=== PATIENT | female | born 1955 | race Caucasian/White ===

== ENCOUNTER 2019-07-16 18:10 | Inpatient (IN) ==
[2019-07-16] MEDS ORDERED: NS 1000 ML 1,000 ML IV ONE (18:13)
[2019-07-16] MEDS ORDERED: NS 1000 ML 2,000 ML ONE (18:25)
[2019-07-16] MEDS ORDERED: ZOFRAN INJ 4 MG VIAL ONE (18:47)
[2019-07-16] MEDS ORDERED: DILAUDID INJ ONE (18:47)
[2019-07-16] MEDS: DILAUDID INJ IVP PRN ×2 (18:51→23:30)
[2019-07-16] MEDS: ZOFRAN INJ 4 MG VIAL IVP PRN (18:52)
[2019-07-16 19:39] LABS: BASOPHILS # (AUTO) 0.1 X10^3/uL (0.0-0.1); BASOPHILS % (AUTO) 0.7 % (0.2-1.0); EOSINOPHILS % (AUTO) 0.2 % (0.9-2.9); HEMATOCRIT 39.4 % (36.0-47.0); HEMOGLOBIN 13.6 g/dL (12.0-16.0); LYMPHOCYTES # (AUTO) 1.3 X10^3/uL (1.3-2.9); LYMPHOCYTES % (AUTO) 10.5 % (21.0-51.0); MEAN CORPUSCULAR HEMOGLOBIN 30.7 pg (27.0-34.0); MEAN CORPUSCULAR HGB CONC 34.4 g/dL (33.0-35.0); MEAN CORPUSCULAR VOLUME 89.1 fL (80.0-100.0); MEAN PLATELET VOLUME 8.2 fL (7.4-11.0); MONOCYTES # (AUTO) 0.5 x10^3/uL (0.3-0.8); NEUTROPHILS # (AUTO) 10.4 x10^3/uL (2.2-4.8); NEUTROPHILS % (AUTO) 84.6 % (42.0-75.0); PLATELET COUNT 255 X10^3/uL (150.0-450.0); RED BLOOD COUNT 4.42 X10^6/uL (3.5-5.4); RED CELL DISTRIBUTION WIDTH 12.4 % (11.6-16.5); WHITE BLOOD COUNT 12.3 X10^3/uL (3.6-10.0)
[2019-07-16 19:45] VITALS: BMI 24.5
[2019-07-16 19:52] LABS: ALANINE AMINOTRANSFERASE 15 Units/L (12-78); ALBUMIN 3.6 g/dL (3.4-5.0); ALKALINE PHOSPHATASE 65 Units/L (46-116); ASPARTATE AMINO TRANSFERASE 15 Units/L (15-37); BLOOD UREA NITROGEN 9 mg/dL (7-18); CALCIUM 8.6 mg/dL (8.5-10.1); CARBON DIOXIDE 27.4 mmol/L (21-32); CHLORIDE 103 mmol/L (98-107); CREATININE 0.86 mg/dL (0.55-1.02); SODIUM 138 mmol/L (136-145); TOTAL PROTEIN 6.6 g/dL (6.4-8.2); eGFR NON BLACK RACES > 60 (>60)
[2019-07-16] MEDS: NS 1000 ML 1,000 ML IV SCH (21:00)
[2019-07-16 21:21] LABS: FREE T4 (FREE THYROXINE) 1.29 ng/dL (0.76-1.46); TSH (3RD GENERATION) 0.609 uIU/mL (0.358-3.74)
[2019-07-17] MEDS: DILAUDID INJ IVP PRN ×2 (05:00→09:26)
--- NOTE | 2019-07-17 06:24 | RAD ---
HISTORYLower abdominal pain, vomitingSTUDYACUTE ABDOMEN JELDCCAVKIUMPWKU72/12/2018FINDINGSThe heart is within normal limits in size. The lungs are mildly hypoinflated but clear. The abdominal gas pattern is nonspecific and nonobstructive. No pneumoperitoneum is identified. No abnormal masses or abnormal calcifications are identified. The regional skeleton is intact.IMPRESSIONUnremarkable acute abdominal seriesElectronically signed by: SRUTHI BLANKENSHIP (Jul 17, 2019 06:23:09)
[2019-07-17] MEDS: LOVENOX INJ 40 MG SYR SC SCH (09:25)
[2019-07-17] MEDS: ZOFRAN INJ 4 MG VIAL IVP PRN (09:25)
--- NOTE | 2019-07-17 09:35 | US ---
HISTORYRUQ PAINSTUDYGALL BLADDERCOMPARISONTECHNIQUEMultiple javier scale and color flow Doppler images of the right upper quadrant were obtained.FINDINGSThe liver is normal in echotexture and size. The liver measures 12 cm sagittal. The liver is echogenic consistent with fatty liver but no focal lesions or dilated ducts are observed. There is normal flow in the main portal vein. There is normal flow in the hepatic veins and the hepatic artery. No focal intraparenchymal mass or intrahepatic biliary ductal dilatation can be observed. The gallbladder fails to demonstrate evidence for cholelithiasis or layering sludge. There is a small amount of fluid surrounding the gallbladder and there is equivocal wall thickening at 3 mm.. The common bile duct is unremarkable measuring 4.8 mm. .The right kidney appears normal in size without focal parenchymal mass or nephrolithiasis. The right kidney measurers 9.6 cm in length by 4.7 cm AP by 5.1 cm transverse with a cortical thickness of 2 cm there is no hydronephrosis solid or cystic mass. There is normal vascular flow to the right kidney with a resistance index of 0.57.. No hydronephrosis or perirenal fluid can be observed. The pancreatic head and body are unremarkable. The pancreatic tail is largely obscured by overlying bowel gas.The visualized aorta is normal proximally the aorta has an AP diameter of 1.3 cm mid aorta measures 1.6 cm and distal aorta has an AP diameter of 1.38 cm. Normal flow is seen in the IVC.IMPRESSIONThere is equivocal wall thickening of the gallbladder at 3 mm and minimal pericystic fluid but no stones or sludge are observed. The liver is fatty but otherwise normal. The bile ducts are normal.The right kidney and visualized portions of the pancreas are normal. The aorta and IVC are normal.Electronically signed by: VISHAL NEGRO (Jul 17, 2019 09:34:15)
[2019-07-17 09:37] LABS: AMYLASE 34 Units/L (25-115); LIPASE 89 Units/L (73-393)
[2019-07-17] MEDS: NS 1000 ML 1,000 ML IV SCH ×2 (11:48→23:00)
--- NOTE | 2019-07-17 13:31 | DR.H&P ---
H&P - History & Physical for Day of: H&P Date: 07/16/19 - Chief Complaint Chief Complaint: INTRACTABLE ABDOMINAL PAIN, N/V - History of Present Illness History of Present Illness: PT IS 63 WF DIRECT ADMIT WITH INTRACTABLE ABDOMINAL PAIN, WORSE ON RIGHT SIDE WITH SEVERE NAUSEA AND VOMITING. PT DENIES ANY DIARRHEA OR FEVER. PT REPORTS HX OF GASTRITIS > 5YEARS AGO, NO RECENT GI COMPLICATIONS, DENIES BLOOD OR MUCOUS IN STOOL. PT WBC ELEVATED ON ADMISSION, PT HAD CT ABD PELVIS ORDERED AND AM GB US. - Past Medical History Past Medical History: Arthritis, GERD - Past Surgical History Surgical History: , Hysterectomy, Ortho Surgery - Family History Family Medical History: [facility] - Social History Does patient currently use any type of tobacco product: No Have you used tobacco products in the last 12 months: No Type of Tobacco Use: None Does any household member use tobacco: No Alcohol Use: None Drug Use: None Risks, benefits, and alternatives of opioids discussed: No - Medications Home Medications: No Known Drug Allergies Allergy (Verified 07/16/19 18:44) CONTINUE taking the following medications cilostazol 100 mg PO DAILY 07/17/19 [History] clonazepam 0.5 mg PO BID 07/17/19 [History] conjugated estrogens [Premarin] 0.625 mg PO DAILY 07/17/19 [History] gabapentin 300 mg PO DAILY 07/17/19 [History] levothyroxine 50 mcg PO DAILY 07/17/19 [History] lubiprostone [Amitiza] 24 mcg PO DAILY 07/17/19 [History] naproxen 375 mg PO BID 07/17/19 [History] omeprazole 40 mg PO DAILY 07/17/19 [History] oxycodone 20 mg PO QID PRN 07/17/19 [History] trazodone 150 mg PO DAILY 07/17/19 [History] - Review of Systems Constitutional: Weakness Eyes: No Symptoms Reported ENT: No Symptoms Reported Respiratory: No Symptoms Reported Cardiovascular: No Symptoms Reported Gastrointestinal: Nausea, Vomiting, Abdominal Pain Genitourinary: No Symptoms Reported Musculoskeletal: Neck Pain Skin: No Symptoms Reported Neurological: No Symptoms Reported - Physical Exam Vital Signs: Temperature 98.5 F Pulse Rate [Left Brachial] 88 Respiratory Rate 18 Blood Pressure [Left Arm] 112/57 O2 Sat by Pulse Oximetry 93 Oriented: Normal Eyes: Normal Ear: Normal Nose: Normal Throat: Normal Respiratory: Clear Throughout Cardiovascular: Normal. negative: Edema : Normal Auscultation: Bowel Sounds: Normal Palpation: Normal Tenderness: Diffuse Skin: Decreased Turgur Musculoskeletal: Normal Psychiatric: Normal Mood Description: Calm Speech Pattern: Clear, Appropriate - Assessment/Plan (1) Intractable abdominal pain Status: Acute Plan: ADMIT, NPO ON ADMISSION. ABD SERIES, ADMISSION LABS, PAIN CONTROL. GENTLE IV HYDRATION. AM GB US. VERIFY HOME MEDICATION. STOOL STUDIES (2) Gastritis Status: Acute (3) Nausea & vomiting Status: Acute - Allergies Allergies/Adverse Reactions: Allergies Allergy/AdvReac Type Severity Reaction Status Date / Time No Known Drug Allergies Allergy Verified 07/16/19 18:44
[2019-07-17] MEDS: ROXICODONE TAB 5 MG PO PRN (14:54)
[2019-07-17 15:31] LABS: BILIRUBIN,URINE NEGATIVE (NEGATIVE); BLOOD/HEMOGLOBIN,URINE 1+ (NEGATIVE); GLUCOSE, URINE NEGATIVE (NEGATIVE); KETONES,URINE NEGATIVE (NEGATIVE); LEUKOCYTE ESTERASE ,URINE NEGATIVE (NEGATIVE); NITRITES,URINE NEGATIVE (NEGATIVE); PROTEIN,URINE 1+ (NEGATIVE); UROBILINOGEN,URINE NORMAL (NORMAL)
[2019-07-17 15:33] LABS: APPEARANCE,URINE HAZY (CLEAR); COLOR,URINE YELLOW (YELLOW)
[2019-07-17 15:38] LABS: BACTERIA,URINE TRACE /HPF (NEGATIVE); RBC,URINE 0-2 /HPF (0-3); SQUAMOUS EPITHELIAL CELL,UR FEW /HPF (NEGATIVE)
[2019-07-17] MEDS: KLONOPIN TAB 0.5 MG PO SCH (21:00)
[2019-07-18] MEDS: ROXICODONE TAB 5 MG PO PRN ×2 (05:30→19:16)
[2019-07-18] MEDS: NS 1000 ML 1,000 ML IV SCH ×2 (06:17→20:33)
[2019-07-18 06:47] LABS: BASOPHILS % (AUTO) 0.4 % (0.2-1.0); EOSINOPHILS # (AUTO) 0.2 x10^3/uL (0.0-0.2); EOSINOPHILS % (AUTO) 1.5 % (0.9-2.9); HEMATOCRIT 35.2 % (36.0-47.0); HEMOGLOBIN 12.1 g/dL (12.0-16.0); LYMPHOCYTES # (AUTO) 2.3 X10^3/uL (1.3-2.9); LYMPHOCYTES % (AUTO) 21.3 % (21.0-51.0); MEAN CORPUSCULAR HEMOGLOBIN 30.9 pg (27.0-34.0); MEAN CORPUSCULAR HGB CONC 34.4 g/dL (33.0-35.0); MEAN CORPUSCULAR VOLUME 89.7 fL (80.0-100.0); MEAN PLATELET VOLUME 8.3 fL (7.4-11.0); MONOCYTES # (AUTO) 1.1 x10^3/uL (0.3-0.8); MONOCYTES % (AUTO) 10.1 % (0.0-13.0); NEUTROPHILS # (AUTO) 7.3 x10^3/uL (2.2-4.8); NEUTROPHILS % (AUTO) 66.7 % (42.0-75.0); PLATELET COUNT 223 X10^3/uL (150.0-450.0); RED BLOOD COUNT 3.92 X10^6/uL (3.5-5.4); RED CELL DISTRIBUTION WIDTH 12.8 % (11.6-16.5)
[2019-07-18 07:06] LABS: ALANINE AMINOTRANSFERASE 12 Units/L (12-78); ALBUMIN 2.8 g/dL (3.4-5.0); ALKALINE PHOSPHATASE 61 Units/L (46-116); ASPARTATE AMINO TRANSFERASE 13 Units/L (15-37); BLOOD UREA NITROGEN 8 mg/dL (7-18); CALCIUM 7.7 mg/dL (8.5-10.1); CARBON DIOXIDE 29.8 mmol/L (21-32); CHLORIDE 101 mmol/L (98-107); COR CA(FOR HYPOALB) 8.7 mg/dL (8.5-10.1); SODIUM 135 mmol/L (136-145); TOTAL PROTEIN 5.9 g/dL (6.4-8.2); eGFR NON BLACK RACES 60 (>60)
[2019-07-18] MEDS: DESYREL PO SCH (08:55)
[2019-07-18] MEDS: LOVENOX INJ 40 MG SYR SC SCH (08:55)
[2019-07-18] MEDS: KLONOPIN TAB 0.5 MG PO SCH ×2 (08:55→20:33)
[2019-07-18] MEDS: NEURONTIN CAP 300 MG PO SCH (08:56)
[2019-07-18] MEDS: PriLOSEC PO SCH (08:56)
[2019-07-18] MEDS: SYNTHROID 50 mcg TAB PO SCH (08:56)
[2019-07-18] MEDS ORDERED: MORPHINE SULFATE INJ 4 MG IVP ONE (14:50)
[2019-07-18] MEDS ORDERED: MORPHINE SULFATE INJ 4 MG ONE (14:56)
--- NOTE | 2019-07-18 16:08 | NM ---
HISTORYScreeningEXAMHIDA/HEPATOBILIARY SCAN W/EFCOMPARISONUltrasound dated 07/25/[id number] millicuries of Choletec were administered with 8 oz of Ensure Plus. After 1 hour 0.4 mg/kg of morphine was given in 10 cc of Saline.FINDINGSThere is radiotracer uptake at the level of the liver. There is some area of photopenia or lack of uptake in the gallbladder fossa. The common bile duct is seen at 25 minutes. There is radiotracer in the small bowel at 30 minutes. There is NO visualization of gallbladder after 2 hours of scanning.IMPRESSIONFindings are consistent with obstruction of the cystic duct with NO visualization of the gallbladder after 2 hours of scanning and morphine administration. Photopenia in the gallbladder fossa consider acute cholecystitis.No evidence of common bile duct obstruction.Electronically signed by: Bambi Hernandez (Jul 18, 2019 16:06:41)
--- NOTE | 2019-07-18 18:19 | PCM.PROG ---
Progress Note - Progress Note for Day of Date of Exam: 07/18/19 - Subjective Subjective: Mrs. Ware is a 63-year-old white female who was a direct admit with intractable abdominal pain, nausea, and vomiting. The patient reports she has had severe cramps starting at the lower abdomen and radiating upward, worse on the right side of the abdomen. The patient did have admission labs including an amylase and lipase which was negative. Pt GB US with wall thickening. Pt to have HIDA scan today. Pt reports pain is controlled with IV narcotic pain medication and reports she had not attempted to eat anything since admission. Plan to keep NPO for HIDA then clear liquid diet as tolerated. - Past Medical Family Social History Past Med/Fam/Surg Hx: No changes since H&P Allergies: Allergies No Known Drug Allergies Allergy (Verified 07/16/19 18:44) - Review of Systems ROS: No change since H&P - Vital Signs and I&O's Vital Signs: Temperature 99.9 F Pulse Rate [Left Brachial] 88 Respiratory Rate 18 Blood Pressure [Left Arm] 117/57 O2 Sat by Pulse Oximetry 95 Intake and Output: Intake & Output 07/16/19 07/17/19 07/18/19 07/19/19 11:59 11:59 11:59 11:59 Intake Total 900 / 900 1140 / 1140 0 / 0 Balance 900 / 900 1140 / 1140 0 / 0 - Physical Exam Oriented: Normal Eyes: Normal Ear: Normal Nose: Normal Throat: Normal Respiratory: Normal Cardiovascular: Normal. negative: Edema : Normal Auscultation: Bowel Sounds: Normal Tenderness: Diffuse, RUQ, RLQ Skin: Decreased Turgur Musculoskeletal: Normal Psychiatric: Normal Mood Description: Calm Speech Pattern: Clear, Appropriate - Laboratory and Diagnostics Result Diagrams: 07/18/19 05:35 07/18/19 05:35 Labs: 07/16/19 19:50 Blood Blood Culture - Preliminary 07/16/19 19:15 Blood Blood Culture - Preliminary Laboratory WBC 11.0 X10^3/uL (3.6-10.0) H 07/18/19 05:35 RBC 3.92 X10^6/uL (3.5-5.4) 07/18/19 05:35 Hgb 12.1 g/dL (12.0-16.0) 07/18/19 05:35 Hct 35.2 % (36.0-47.0) L 07/18/19 05:35 MCV 89.7 fL (80.0-100.0) 07/18/19 05:35 MCH 30.9 pg (27.0-34.0) 07/18/19 05:35 MCHC 34.4 g/dL (33.0-35.0) 07/18/19 05:35 RDW 12.8 % (11.6-16.5) 07/18/19 05:35 Plt Count 223 X10^3/uL (150.0-450.0) 07/18/19 05:35 MPV 8.3 fL (7.4-11.0) 07/18/19 05:35 Neut % (Auto) 66.7 % (42.0-75.0) 07/18/19 05:35 Lymph % (Auto) 21.3 % (21.0-51.0) 07/18/19 05:35 [place] % (Auto) 10.1 % (0.0-13.0) 07/18/19 05:35 Eos % (Auto) 1.5 % (0.9-2.9) 07/18/19 05:35 Baso % (Auto) 0.4 % (0.2-1.0) 07/18/19 05:35 Neut # (Auto) 7.3 x10^3/uL (2.2-4.8) H 07/18/19 05:35 Lymph # (Auto) 2.3 X10^3/uL (1.3-2.9) 07/18/19 05:35 [place] # (Auto) 1.1 x10^3/uL (0.3-0.8) H 07/18/19 05:35 Eos # (Auto) 0.2 x10^3/uL (0.0-0.2) 07/18/19 05:35 Baso # (Auto) 0.0 X10^3/uL (0.0-0.1) 07/18/19 05:35 Absolute Nucleated RBC 0.0 /100WBC 07/18/19 05:35 Sodium 135 mmol/L (136-145) L 07/18/19 05:35 Corrected Sodium TNP 07/18/19 05:35 Potassium 3.4 mmol/L (3.5-5.1) L 07/18/19 05:35 Chloride 101 mmol/L (98-107) 07/18/19 05:35 Carbon Dioxide 29.8 mmol/L (21-32) 07/18/19 05:35 BUN 8 mg/dL (7-18) 07/18/19 05:35 Creatinine 1.00 mg/dL (0.55-1.02) 07/18/19 05:35 Est GFR (MDRD) Af Amer > 60 (>60) 07/18/19 05:35 Est GFR (MDRD) Non-Af 60 (>60) 07/18/19 05:35 Glucose 89 mg/dL (65-99) 07/18/19 05:35 Calcium 7.7 mg/dL (8.5-10.1) L 07/18/19 05:35 Corrected Calcium 8.7 mg/dL (8.5-10.1) 07/18/19 05:35 Total Bilirubin 0.50 mg/dL (0.2-1.0) 07/18/19 05:35 AST 13 Units/L (15-37) L 07/18/19 05:35 ALT 12 Units/L (12-78) 07/18/19 05:35 Alkaline Phosphatase 61 Units/L (46-116) 07/18/19 05:35 Total Protein 5.9 g/dL (6.4-8.2) L 07/18/19 05:35 Albumin 2.8 g/dL (3.4-5.0) L 07/18/19 05:35 Globulin 3.1 g/dL (2.5-4.5) 07/18/19 05:35 Albumin/Globulin Ratio 0.9 Ratio (1.1-2.1) L 07/18/19 05:35 Amylase 34 Units/L (25-115) 07/17/19 09:20 Lipase 89 Units/L (73-393) 07/17/19 09:20 Free T4 1.29 ng/dL (0.76-1.46) 07/16/19 19:15 TSH 3rd Generation 0.609 uIU/mL (0.358-3.74) 07/16/19 19:15 Specimen Type Clean catch urine 07/17/19 15:15 Urine Color Yellow (YELLOW) 07/17/19 15:15 Urine Appearance Hazy (CLEAR) 07/17/19 15:15 Urine pH 6.0 (5.0 - 8.0) 07/17/19 15:15 Ur Specific [place] 1.015 (1.000-1.030) 07/17/19 15:15 Urine Protein 1+ (NEGATIVE) 07/17/19 15:15 Urine Glucose (UA) Negative (NEGATIVE) 07/17/19 15:15 Urine Ketones Negative (NEGATIVE) 07/17/19 15:15 Urine Occult Blood 1+ (NEGATIVE) 07/17/19 15:15 Urine Nitrite Negative (NEGATIVE) 07/17/19 15:15 Urine Bilirubin Negative (NEGATIVE) 07/17/19 15:15 Urine Urobilinogen Normal (NORMAL) 07/17/19 15:15 Ur Leukocyte Esterase Negative (NEGATIVE) 07/17/19 15:15 Urine RBC 0-2 /HPF (0-3) 07/17/19 15:15 Urine WBC 0-2 /HPF (0-5) 07/17/19 15:15 Ur Squamous Epith Cells Few /HPF (NEGATIVE) 07/17/19 15:15 Urine Bacteria Trace /HPF (NEGATIVE) 07/17/19 15:15 Ur Culture Indicated? No/not indicated 07/17/19 15:15 - Plan (1) Gallbladder attack Status: Acute Plan: NPO FOR HIDA, PAIN CONTROL. IV HYDRATION, PPI THERAPY (2) Intractable abdominal pain Status: Acute (3) Gastritis Status: Acute (4) Nausea & vomiting Status: Acute
[2019-07-18] MEDS: DILAUDID INJ IVP PRN (23:45)
[2019-07-19] MEDS: DILAUDID INJ IVP PRN (04:45)
[2019-07-19] MEDS: NS 1000 ML 1,000 ML IV SCH ×2 (06:04→17:22)
[2019-07-19 06:29] LABS: BASOPHILS # (AUTO) 0.2 X10^3/uL (0.0-0.1); BASOPHILS % (AUTO) 1.1 % (0.2-1.0); EOSINOPHILS # (AUTO) 0.1 x10^3/uL (0.0-0.2); HEMATOCRIT 35.7 % (36.0-47.0); HEMOGLOBIN 12.1 g/dL (12.0-16.0); LYMPHOCYTES # (AUTO) 1.8 X10^3/uL (1.3-2.9); LYMPHOCYTES % (AUTO) 13.7 % (21.0-51.0); MEAN CORPUSCULAR HEMOGLOBIN 30.6 pg (27.0-34.0); MEAN CORPUSCULAR VOLUME 89.8 fL (80.0-100.0); MEAN PLATELET VOLUME 8.2 fL (7.4-11.0); MONOCYTES # (AUTO) 1.4 x10^3/uL (0.3-0.8); MONOCYTES % (AUTO) 10.5 % (0.0-13.0); NEUTROPHILS # (AUTO) 9.8 x10^3/uL (2.2-4.8); NEUTROPHILS % (AUTO) 73.7 % (42.0-75.0); PLATELET COUNT 215 X10^3/uL (150.0-450.0); RED BLOOD COUNT 3.97 X10^6/uL (3.5-5.4); RED CELL DISTRIBUTION WIDTH 12.5 % (11.6-16.5); WHITE BLOOD COUNT 13.3 X10^3/uL (3.6-10.0)
[2019-07-19 06:50] LABS: ALANINE AMINOTRANSFERASE 18 Units/L (12-78); ALBUMIN 2.8 g/dL (3.4-5.0); ALKALINE PHOSPHATASE 79 Units/L (46-116); ASPARTATE AMINO TRANSFERASE 18 Units/L (15-37); BLOOD UREA NITROGEN 7 mg/dL (7-18); CALCIUM 7.8 mg/dL (8.5-10.1); CARBON DIOXIDE 27.2 mmol/L (21-32); CHLORIDE 98 mmol/L (98-107); COR CA(FOR HYPOALB) 8.8 mg/dL (8.5-10.1); SODIUM 135 mmol/L (136-145); TOTAL PROTEIN 6.4 g/dL (6.4-8.2); eGFR NON BLACK RACES 54 (>60)
[2019-07-19] MEDS ORDERED: MICRO K EXTEN CAP 10 MEQ PO PRN (09:16)
[2019-07-19] MEDS ORDERED: POTASSIUM CHLORIDE LIQ 20 MEQ UDC PO PRN (09:16)
[2019-07-19] MEDS ORDERED: POTASSIUM CHL 60 MEQ/NS 0.45% 500 ML IV PRN (09:16)
[2019-07-19] MEDS ORDERED: KLOR-CON PO PRN (09:16)
[2019-07-19] MEDS ORDERED: K-RIDER 10 MEQ/NS 100 ML 10 MEQ/100 ML BAG IV PRN (09:16)
[2019-07-19] MEDS ORDERED: POTASSIUM CHL 40 MEQ/NS 0.45% 500 ML IV PRN (09:16)
[2019-07-19] MEDS: KLONOPIN TAB 0.5 MG PO SCH ×2 (09:45→20:13)
[2019-07-19] MEDS: NEURONTIN CAP 300 MG PO SCH (09:45)
[2019-07-19] MEDS: DESYREL PO SCH (09:45)
[2019-07-19] MEDS: PriLOSEC PO SCH (09:46)
[2019-07-19] MEDS: SYNTHROID 50 mcg TAB PO SCH (09:46)
[2019-07-19] MEDS: ZOSYN VIAL 3.375 GRAMS 3.375 G in NS 100 ML IV 100 ML IV SCH ×3 (11:09→22:13)
[2019-07-19] MEDS ORDERED: REGLAN INJ 10 MG VIAL IVP PRN (13:11)
[2019-07-19] MEDS ORDERED: PHENERGAN INJ 25 MG IM PRN (13:11)
[2019-07-19] MEDS ORDERED: DILAUDID INJ IVP PRN (13:11)
[2019-07-19] MEDS ORDERED: ZOFRAN INJ 4 MG VIAL IVP PRN (13:11)
[2019-07-19] MEDS ORDERED: BENADRYL INJ 50 MG VIAL IVP PRN (13:11)
[2019-07-19] MEDS ORDERED: FENTANYL INJ 250 mcg ONE (13:13)
[2019-07-19] MEDS ORDERED: ANCEF 1 GRAM IV PREMIX* 1 G/50 ML BAG IV ONE (13:21)
[2019-07-19] MEDS ORDERED: NS IRRIGATION 3000 ML ONE (14:26)
[2019-07-19] MEDS ORDERED: LR 1000 ML IV 1,000 ML IV ONE (14:33)
[2019-07-19] MEDS ORDERED: ZOFRAN INJ 4 MG VIAL ONE (14:38)
[2019-07-19] MEDS ORDERED: NEOSTIGMINE INJ ONE (14:38)
[2019-07-19] MEDS ORDERED: EPHEDRINE SULFATE INJ ONE (14:38)
[2019-07-19] MEDS ORDERED: VERSED ONE (14:38)
[2019-07-19] MEDS ORDERED: ROBINUL ONE (14:38)
[2019-07-19] MEDS ORDERED: SUPRANE ONE (14:38)
[2019-07-19] MEDS ORDERED: QUELICIN (OR ANECTINE) ONE (14:38)
[2019-07-19] MEDS ORDERED: DIPRIVAN VIAL ONE (14:38)
[2019-07-19] MEDS ORDERED: NORCURON INJ 10 MG VIAL ONE (14:38)
[2019-07-19] MEDS ORDERED: TORADOL 30 MG VIAL ONE (14:38)
[2019-07-19] MEDS ORDERED: BACTROBAN TOPICAL OINT ONE (14:39)
--- NOTE | 2019-07-19 16:36 | OR.IMMED ---
Immediate Post-Op Note - Immediate Post-Op Note Pre-Op Diagnosis: acute cholecystitis Post-Op Diagnosis: acute calculus cholecystitis with gangrenous changes of the GB and thick wall . with dense adhesions to the TC , Stomach, DU and abdominal wall . Procedure: lysis of adhesions ,. lap eddie . Surgeon/Cinder Worker: Deandre Specimens Removed: GB with contents .. Drains: Khalif Rosas Complications: none Condition: Stable (on clear liquid and IV ATB ..)
[2019-07-19] MEDS: K-DUR TAB 20 MEQ PO PRN (17:27)
[2019-07-19] MEDS ORDERED: NS 100 ML IV + SPIKE MINIBAG* 100 ML IV ONE (19:47)
[2019-07-19] MEDS: ROXICODONE TAB 5 MG PO PRN (20:13)
[2019-07-20] MEDS: MAGNESIUM SULFATE 1 GRAM/100 mL PREMIX 1 GM/100 ML BAG IV PRN ×2 (00:54→02:03)
[2019-07-20] MEDS: DILAUDID INJ IVP PRN (03:50)
[2019-07-20] MEDS ORDERED: NS 100 ML IV + SPIKE MINIBAG* 100 ML IV ONE ×2 (05:26→20:27)
[2019-07-20] MEDS: ZOSYN VIAL 3.375 GRAMS 3.375 G in NS 100 ML IV 100 ML IV SCH ×3 (05:29→21:30)
[2019-07-20 06:23] LABS: BASOPHILS # (AUTO) 0.1 X10^3/uL (0.0-0.1); BASOPHILS % (AUTO) 0.8 % (0.2-1.0); EOSINOPHILS # (AUTO) 0.3 x10^3/uL (0.0-0.2); EOSINOPHILS % (AUTO) 2.2 % (0.9-2.9); HEMATOCRIT 36.8 % (36.0-47.0); HEMOGLOBIN 12.6 g/dL (12.0-16.0); LYMPHOCYTES # (AUTO) 2.4 X10^3/uL (1.3-2.9); LYMPHOCYTES % (AUTO) 20.7 % (21.0-51.0); MEAN CORPUSCULAR HEMOGLOBIN 30.8 pg (27.0-34.0); MEAN CORPUSCULAR HGB CONC 34.2 g/dL (33.0-35.0); MEAN CORPUSCULAR VOLUME 90.1 fL (80.0-100.0); MONOCYTES # (AUTO) 1.1 x10^3/uL (0.3-0.8); MONOCYTES % (AUTO) 9.3 % (0.0-13.0); NEUTROPHILS # (AUTO) 7.7 x10^3/uL (2.2-4.8); PLATELET COUNT 303 X10^3/uL (150.0-450.0); RED BLOOD COUNT 4.09 X10^6/uL (3.5-5.4); RED CELL DISTRIBUTION WIDTH 12.8 % (11.6-16.5); WHITE BLOOD COUNT 11.5 X10^3/uL (3.6-10.0)
[2019-07-20 06:44] LABS: ALANINE AMINOTRANSFERASE 27 Units/L (12-78); ALBUMIN 3.2 g/dL (3.4-5.0); ALKALINE PHOSPHATASE 91 Units/L (46-116); ASPARTATE AMINO TRANSFERASE 37 Units/L (15-37); BLOOD UREA NITROGEN 8 mg/dL (7-18); CALCIUM 8.5 mg/dL (8.5-10.1); CARBON DIOXIDE 28.2 mmol/L (21-32); CHLORIDE 97 mmol/L (98-107); COR CA(FOR HYPOALB) 9.1 mg/dL (8.5-10.1); MAGNESIUM 2.5 mg/dL (1.7-2.9); SODIUM 133 mmol/L (136-145); TOTAL PROTEIN 7.5 g/dL (6.4-8.2); eGFR NON BLACK RACES 49 (>60)
[2019-07-20] MEDS: K-DUR TAB 20 MEQ PO PRN (09:22)
[2019-07-20] MEDS: NEURONTIN CAP 300 MG PO SCH (09:22)
[2019-07-20] MEDS: SYNTHROID 50 mcg TAB PO SCH (09:22)
[2019-07-20] MEDS: DESYREL PO SCH (09:23)
[2019-07-20] MEDS: KLONOPIN TAB 0.5 MG PO SCH ×2 (09:23→21:00)
[2019-07-20] MEDS: PriLOSEC PO SCH (09:24)
[2019-07-20] MEDS: NS 1000 ML 1,000 ML IV SCH ×2 (13:03→17:21)
--- NOTE | 2019-07-20 13:54 | RAD ---
HISTORYCONSTIPATIONSTUDYKUBCOMPARISONJune 2019FINDINGSThere is barium from prior CT examination in the right colon. There is mild gassy is fullness of the transverse colon. There are cholecystectomy clips. There are degenerative changes in the lower lumbar spine especially of the L5-S1 facet joints. IMPRESSIONProbable colonic ileus status post recent cholecystectomyElectronically signed by: CONNIE CARRILLO (Jul 20, 2019 13:53:24)
[2019-07-20] MEDS ORDERED: COLACE CAP 100 MG PO SCH (21:00)
[2019-07-20] MEDS: ROXICODONE TAB 5 MG PO PRN (23:55)
[2019-07-21] MEDS ORDERED: NS 100 ML IV + SPIKE MINIBAG* 100 ML IV ONE (04:56)
[2019-07-21 05:30] LABS: BASOPHILS # (AUTO) 0.1 X10^3/uL (0.0-0.1); BASOPHILS % (AUTO) 0.9 % (0.2-1.0); EOSINOPHILS # (AUTO) 0.3 x10^3/uL (0.0-0.2); EOSINOPHILS % (AUTO) 3.8 % (0.9-2.9); HEMATOCRIT 33.2 % (36.0-47.0); HEMOGLOBIN 11.4 g/dL (12.0-16.0); LYMPHOCYTES # (AUTO) 1.8 X10^3/uL (1.3-2.9); MEAN CORPUSCULAR HEMOGLOBIN 31.3 pg (27.0-34.0); MEAN CORPUSCULAR HGB CONC 34.4 g/dL (33.0-35.0); MEAN PLATELET VOLUME 8.7 fL (7.4-11.0); MONOCYTES # (AUTO) 0.8 x10^3/uL (0.3-0.8); MONOCYTES % (AUTO) 9.8 % (0.0-13.0); NEUTROPHILS # (AUTO) 5.3 x10^3/uL (2.2-4.8); NEUTROPHILS % (AUTO) 63.5 % (42.0-75.0); PLATELET COUNT 281 X10^3/uL (150.0-450.0); RED BLOOD COUNT 3.64 X10^6/uL (3.5-5.4); RED CELL DISTRIBUTION WIDTH 12.6 % (11.6-16.5); WHITE BLOOD COUNT 8.3 X10^3/uL (3.6-10.0)
[2019-07-21 05:42] LABS: ALANINE AMINOTRANSFERASE 24 Units/L (12-78); ALBUMIN 2.8 g/dL (3.4-5.0); ALKALINE PHOSPHATASE 98 Units/L (46-116); ASPARTATE AMINO TRANSFERASE 45 Units/L (15-37); BLOOD UREA NITROGEN 5 mg/dL (7-18); CALCIUM 8.1 mg/dL (8.5-10.1); CARBON DIOXIDE 32.3 mmol/L (21-32); CHLORIDE 101 mmol/L (98-107); COR CA(FOR HYPOALB) 9.1 mg/dL (8.5-10.1); CREATININE 0.99 mg/dL (0.55-1.02); SODIUM 137 mmol/L (136-145); TOTAL PROTEIN 6.7 g/dL (6.4-8.2); eGFR NON BLACK RACES > 60 (>60)
[2019-07-21] MEDS: DILAUDID INJ IVP PRN (05:45)
[2019-07-21] MEDS: ZOSYN VIAL 3.375 GRAMS 3.375 G in NS 100 ML IV 100 ML IV SCH (05:55)
[2019-07-21] MEDS: NS 1000 ML 1,000 ML IV SCH (06:30)
--- NOTE | 2019-07-21 06:52 | DR.PROGNOT ---
Hospital Progress Notes - Progress Note for Day of: Progress Note Date: 07/21/19 - Chief Complaint Chief Complaint: doing well PO lap eddie for acute calculus cholecystitis . normal LFT and WBC . SUNDAY was removed . Pt is on low fat diet . - Past Medical Family Social History Past Med/Fam/Surg Hx: No changes since H&P Allergies: Allergies No Known Drug Allergies Allergy (Verified 07/16/19 18:44) - Review Of Systems ROS: No change since H&P - Vital Signs Vital Signs: Temperature 99.2 F Pulse Rate [Left Brachial] 84 Pulse Rate 94 Respiratory Rate 20 Blood Pressure [Left Arm] 104/59 Blood Pressure 124/62 O2 Sat by Pulse Oximetry 96 - Physical Exam Oriented: Normal Eyes: Normal Ear: Normal Nose: Normal Throat: Normal Respiratory: Normal Cardiovascular: Normal. negative: Edema : Normal GI:Auscultation: Normal GI:Palpation: Normal GI: Tenderness: Diffuse, RUQ, RLQ Skin: Decreased Turgur Musculoskeletal: Normal Psychiatric: Normal Mood Description: Calm Speech Pattern: Slurred - Laboratory and Diagnostics Result Diagrams: 07/21/19 04:27 07/21/19 04:27 Labs: 07/16/19 19:50 Blood Blood Culture - Preliminary 07/16/19 19:15 Blood Blood Culture - Preliminary Laboratory WBC 8.3 X10^3/uL (3.6-10.0) 07/21/19 04:27 RBC 3.64 X10^6/uL (3.5-5.4) 07/21/19 04:27 Hgb 11.4 g/dL (12.0-16.0) L 07/21/19 04:27 Hct 33.2 % (36.0-47.0) L 07/21/19 04:27 MCV 91.0 fL (80.0-100.0) 07/21/19 04:27 MCH 31.3 pg (27.0-34.0) 07/21/19 04:27 MCHC 34.4 g/dL (33.0-35.0) 07/21/19 04:27 RDW 12.6 % (11.6-16.5) 07/21/19 04:27 Plt Count 281 X10^3/uL (150.0-450.0) 07/21/19 04:27 MPV 8.7 fL (7.4-11.0) 07/21/19 04:27 Neut % (Auto) 63.5 % (42.0-75.0) 07/21/19 04:27 Lymph % (Auto) 22.0 % (21.0-51.0) 07/21/19 04:27 [place] % (Auto) 9.8 % (0.0-13.0) 07/21/19 04:27 Eos % (Auto) 3.8 % (0.9-2.9) H 07/21/19 04:27 Baso % (Auto) 0.9 % (0.2-1.0) 07/21/19 04:27 Neut # (Auto) 5.3 x10^3/uL (2.2-4.8) H 07/21/19 04:27 Lymph # (Auto) 1.8 X10^3/uL (1.3-2.9) 07/21/19 04:27 [place] # (Auto) 0.8 x10^3/uL (0.3-0.8) 07/21/19 04:27 Eos # (Auto) 0.3 x10^3/uL (0.0-0.2) H 07/21/19 04:27 Baso # (Auto) 0.1 X10^3/uL (0.0-0.1) 07/21/19 04:27 Absolute Nucleated RBC 0.0 /100WBC 07/21/19 04:27 Sodium 137 mmol/L (136-145) 07/21/19 04:27 Corrected Sodium TNP 07/21/19 04:27 Potassium 3.7 mmol/L (3.5-5.1) 07/21/19 04:27 Chloride 101 mmol/L (98-107) 07/21/19 04:27 Carbon Dioxide 32.3 mmol/L (21-32) H 07/21/19 04:27 BUN 5 mg/dL (7-18) L 07/21/19 04:27 Creatinine 0.99 mg/dL (0.55-1.02) 07/21/19 04:27 Est GFR (MDRD) Af Amer > 60 (>60) 07/21/19 04:27 Est GFR (MDRD) Non-Af > 60 (>60) 07/21/19 04:27 Glucose 97 mg/dL (65-99) 07/21/19 04:27 Calcium 8.1 mg/dL (8.5-10.1) L 07/21/19 04:27 Corrected Calcium 9.1 mg/dL (8.5-10.1) 07/21/19 04:27 Magnesium 2.5 mg/dL (1.7-2.9) 07/20/19 06:04 Total Bilirubin 0.30 mg/dL (0.2-1.0) 07/21/19 04:27 AST 45 Units/L (15-37) H 07/21/19 04:27 ALT 24 Units/L (12-78) 07/21/19 04:27 Alkaline Phosphatase 98 Units/L (46-116) 07/21/19 04:27 Total Protein 6.7 g/dL (6.4-8.2) 07/21/19 04:27 Albumin 2.8 g/dL (3.4-5.0) L 07/21/19 04:27 Globulin 3.9 g/dL (2.5-4.5) 07/21/19 04:27 Albumin/Globulin Ratio 0.7 Ratio (1.1-2.1) L 07/21/19 04:27 Amylase 34 Units/L (25-115) 07/17/19 09:20 Lipase 89 Units/L (73-393) 07/17/19 09:20 Free T4 1.29 ng/dL (0.76-1.46) 07/16/19 19:15 TSH 3rd Generation 0.609 uIU/mL (0.358-3.74) 07/16/19 19:15 Specimen Type Clean catch urine 07/17/19 15:15 Urine Color Yellow (YELLOW) 07/17/19 15:15 Urine Appearance Hazy (CLEAR) 07/17/19 15:15 Urine pH 6.0 (5.0 - 8.0) 07/17/19 15:15 Ur Specific [place] 1.015 (1.000-1.030) 07/17/19 15:15 Urine Protein 1+ (NEGATIVE) 07/17/19 15:15 Urine Glucose (UA) Negative (NEGATIVE) 07/17/19 15:15 Urine Ketones Negative (NEGATIVE) 07/17/19 15:15 Urine Occult Blood 1+ (NEGATIVE) 07/17/19 15:15 Urine Nitrite Negative (NEGATIVE) 07/17/19 15:15 Urine Bilirubin Negative (NEGATIVE) 07/17/19 15:15 Urine Urobilinogen Normal (NORMAL) 07/17/19 15:15 Ur Leukocyte Esterase Negative (NEGATIVE) 07/17/19 15:15 Urine RBC 0-2 /HPF (0-3) 07/17/19 15:15 Urine WBC 0-2 /HPF (0-5) 07/17/19 15:15 Ur Squamous Epith Cells Few /HPF (NEGATIVE) 07/17/19 15:15 Urine Bacteria Trace /HPF (NEGATIVE) 07/17/19 15:15 Ur Culture Indicated? No/not indicated 07/17/19 15:15 SARS-CoV-2 (PCR) Negative (NEGATIVE) 07/19/19 09:46 Tissue Pathology To follow 07/19/19 14:25 - Assessment and Plan 1: s/p lap eddie for acute calculus cholecystitis . to follow in 10 days - Problem Patient Problems: Patient Problems Intractable abdominal pain (Acute) R10.9 Gastritis (Acute) K29.70 Nausea & vomiting (Acute) R11.2 Gallbladder attack (Acute) K82.9
[2019-07-21] MEDS ORDERED: MILK OF MAGNESIA PO SCH (09:00)
[2019-07-21] MEDS: KLONOPIN TAB 0.5 MG PO SCH (09:32)
[2019-07-21] MEDS: K-DUR TAB 20 MEQ PO PRN (09:32)
[2019-07-21] MEDS: DESYREL PO SCH (09:33)
[2019-07-21] MEDS: SYNTHROID 50 mcg TAB PO SCH (09:33)
[2019-07-21] MEDS: NEURONTIN CAP 300 MG PO SCH (09:34)
[2019-07-21] MEDS: PriLOSEC PO SCH (09:34)
[2019-07-21 11:21] VITALS: BP 108/63
--- NOTE | 2019-07-21 11:44 | W.DIS.FURT ---
Summary of Discharge Admission Diagnosis Vital Signs: Vital Signs (72 hours) 07/18/19 12:00 07/18/19 15:08 07/18/19 15:38 Temperature 98.8 F Pulse Rate Pulse Rate [Left Brachial] 86 Respiratory Rate 18 16 19 Blood Pressure Blood Pressure [Left Arm] 105/60 O2 Sat by Pulse Oximetry 94 L 07/18/19 16:00 07/18/19 19:16 07/18/19 20:00 Temperature 99.9 F H 100.3 F H Pulse Rate Pulse Rate [Left Brachial] 88 90 Respiratory Rate 18 18 16 Blood Pressure Blood Pressure [Left Arm] 117/57 105/55 O2 Sat by Pulse Oximetry 95 92 L 07/18/19 20:16 07/18/19 23:45 07/19/19 00:00 Temperature 99.3 F Pulse Rate Pulse Rate [Left Brachial] 103 H Respiratory Rate 18 18 18 Blood Pressure Blood Pressure [Left Arm] 111/59 O2 Sat by Pulse Oximetry 96 07/19/19 00:15 07/19/19 04:00 07/19/19 04:45 Temperature 99.4 F Pulse Rate Pulse Rate [Left Brachial] 112 H Respiratory Rate 18 20 18 Blood Pressure Blood Pressure [Left Arm] 121/61 O2 Sat by Pulse Oximetry 93 L 07/19/19 05:15 07/19/19 08:00 07/19/19 12:00 Temperature 98.8 F 99.1 F Pulse Rate Pulse Rate [Left Brachial] 91 H 84 Respiratory Rate 18 20 20 Blood Pressure Blood Pressure [Left Arm] 91/50 99/46 O2 Sat by Pulse Oximetry 95 100 07/19/19 14:53 07/19/19 14:58 07/19/19 15:03 Temperature Pulse Rate 102 H 100 H 98 H Pulse Rate [Left Brachial] Respiratory Rate 16 18 18 Blood Pressure 114/63 110/58 114/58 Blood Pressure [Left Arm] O2 Sat by Pulse Oximetry 95 97 96 07/19/19 15:08 07/19/19 15:13 07/19/19 15:18 Temperature Pulse Rate 98 H 99 H 97 H Pulse Rate [Left Brachial] Respiratory Rate 20 20 20 Blood Pressure 120/61 121/58 119/58 Blood Pressure [Left Arm] O2 Sat by Pulse Oximetry 97 97 98 07/19/19 15:22 07/19/19 15:30 07/19/19 15:45 Temperature 98.6 F 98.6 F Pulse Rate 94 H Pulse Rate [Left Brachial] 101 H 95 H Respiratory Rate 20 20 20 Blood Pressure 124/62 Blood Pressure [Left Arm] 108/58 115/57 O2 Sat by Pulse Oximetry 98 100 100 07/19/19 16:00 07/19/19 16:15 07/19/19 16:30 Temperature 98.2 F 98.2 F 98.2 F Pulse Rate Pulse Rate [Left Brachial] 91 H 92 H 91 H Respiratory Rate 20 20 20 Blood Pressure Blood Pressure [Left Arm] 109/60 107/57 112/59 O2 Sat by Pulse Oximetry 100 100 100 07/19/19 17:30 07/19/19 18:30 07/19/19 19:30 Temperature 98.1 F 97.9 F 97.7 F Pulse Rate Pulse Rate [Left Brachial] 91 H 88 93 H Respiratory Rate 20 20 20 Blood Pressure Blood Pressure [Left Arm] 117/57 106/58 154/58 O2 Sat by Pulse Oximetry 96 95 93 L 07/19/19 20:13 07/19/19 20:30 07/19/19 21:13 Temperature 99.1 F Pulse Rate Pulse Rate [Left Brachial] 93 H Respiratory Rate 18 18 16 Blood Pressure Blood Pressure [Left Arm] 121/59 O2 Sat by Pulse Oximetry 93 L 07/20/19 00:00 07/20/19 03:50 07/20/19 04:20 Temperature 99.1 F Pulse Rate Pulse Rate [Left Brachial] 109 H Respiratory Rate 18 18 20 Blood Pressure Blood Pressure [Left Arm] 104/64 O2 Sat by Pulse Oximetry 94 L 07/20/19 08:05 07/20/19 16:00 07/20/19 19:30 Temperature 99 F 98.6 F 99.2 F Pulse Rate Pulse Rate [Left Brachial] 97 H 80 84 Respiratory Rate 20 20 18 Blood Pressure Blood Pressure [Left Arm] 111/64 124/72 104/59 O2 Sat by Pulse Oximetry 94 L 97 96 07/20/19 23:55 07/21/19 00:55 07/21/19 05:45 Temperature Pulse Rate Pulse Rate [Left Brachial] Respiratory Rate 18 20 18 Blood Pressure Blood Pressure [Left Arm] O2 Sat by Pulse Oximetry 07/21/19 06:15 07/21/19 08:00 Temperature 98 F Pulse Rate Pulse Rate [Left Brachial] 83 Respiratory Rate 20 18 Blood Pressure Blood Pressure [Left Arm] 108/63 O2 Sat by Pulse Oximetry 97 Labs: Laboratory Last Values WBC 8.3 X10^3/uL (3.6-10.0) 07/21/19 04:27 RBC 3.64 X10^6/uL (3.5-5.4) 07/21/19 04:27 Hgb 11.4 g/dL (12.0-16.0) L 07/21/19 04:27 Hct 33.2 % (36.0-47.0) L 07/21/19 04:27 MCV 91.0 fL (80.0-100.0) 07/21/19 04:27 MCH 31.3 pg (27.0-34.0) 07/21/19 04:27 MCHC 34.4 g/dL (33.0-35.0) 07/21/19 04:27 RDW 12.6 % (11.6-16.5) 07/21/19 04:27 Plt Count 281 X10^3/uL (150.0-450.0) 07/21/19 04:27 MPV 8.7 fL (7.4-11.0) 07/21/19 04:27 Neut % (Auto) 63.5 % (42.0-75.0) 07/21/19 04:27 Lymph % (Auto) 22.0 % (21.0-51.0) 07/21/19 04:27 [place] % (Auto) 9.8 % (0.0-13.0) 07/21/19 04:27 Eos % (Auto) 3.8 % (0.9-2.9) H 07/21/19 04:27 Baso % (Auto) 0.9 % (0.2-1.0) 07/21/19 04:27 Neut # (Auto) 5.3 x10^3/uL (2.2-4.8) H 07/21/19 04:27 Lymph # (Auto) 1.8 X10^3/uL (1.3-2.9) 07/21/19 04:27 [place] # (Auto) 0.8 x10^3/uL (0.3-0.8) 07/21/19 04:27 Eos # (Auto) 0.3 x10^3/uL (0.0-0.2) H 07/21/19 04:27 Baso # (Auto) 0.1 X10^3/uL (0.0-0.1) 07/21/19 04:27 Absolute Nucleated RBC 0.0 /100WBC 07/21/19 04:27 Sodium 137 mmol/L (136-145) 07/21/19 04:27 Corrected Sodium TNP 07/21/19 04:27 Potassium 3.7 mmol/L (3.5-5.1) 07/21/19 04:27 Chloride 101 mmol/L (98-107) 07/21/19 04:27 Carbon Dioxide 32.3 mmol/L (21-32) H 07/21/19 04:27 BUN 5 mg/dL (7-18) L 07/21/19 04:27 Creatinine 0.99 mg/dL (0.55-1.02) 07/21/19 04:27 Est GFR (MDRD) Af Amer > 60 (>60) 07/21/19 04:27 Est GFR (MDRD) Non-Af > 60 (>60) 07/21/19 04:27 Glucose 97 mg/dL (65-99) 07/21/19 04:27 Calcium 8.1 mg/dL (8.5-10.1) L 07/21/19 04:27 Corrected Calcium 9.1 mg/dL (8.5-10.1) 07/21/19 04:27 Magnesium 2.5 mg/dL (1.7-2.9) 07/20/19 06:04 Total Bilirubin 0.30 mg/dL (0.2-1.0) 07/21/19 04:27 AST 45 Units/L (15-37) H 07/21/19 04:27 ALT 24 Units/L (12-78) 07/21/19 04:27 Alkaline Phosphatase 98 Units/L (46-116) 07/21/19 04:27 Total Protein 6.7 g/dL (6.4-8.2) 07/21/19 04:27 Albumin 2.8 g/dL (3.4-5.0) L 07/21/19 04:27 Globulin 3.9 g/dL (2.5-4.5) 07/21/19 04:27 Albumin/Globulin Ratio 0.7 Ratio (1.1-2.1) L 07/21/19 04:27 Amylase 34 Units/L (25-115) 07/17/19 09:20 Lipase 89 Units/L (73-393) 07/17/19 09:20 Free T4 1.29 ng/dL (0.76-1.46) 07/16/19 19:15 TSH 3rd Generation 0.609 uIU/mL (0.358-3.74) 07/16/19 19:15 Specimen Type Clean catch urine 07/17/19 15:15 Urine Color Yellow (YELLOW) 07/17/19 15:15 Urine Appearance Hazy (CLEAR) 07/17/19 15:15 Urine pH 6.0 (5.0 - 8.0) 07/17/19 15:15 Ur Specific [place] 1.015 (1.000-1.030) 07/17/19 15:15 Urine Protein 1+ (NEGATIVE) 07/17/19 15:15 Urine Glucose (UA) Negative (NEGATIVE) 07/17/19 15:15 Urine Ketones Negative (NEGATIVE) 07/17/19 15:15 Urine Occult Blood 1+ (NEGATIVE) 07/17/19 15:15 Urine Nitrite Negative (NEGATIVE) 07/17/19 15:15 Urine Bilirubin Negative (NEGATIVE) 07/17/19 15:15 Urine Urobilinogen Normal (NORMAL) 07/17/19 15:15 Ur Leukocyte Esterase Negative (NEGATIVE) 07/17/19 15:15 Urine RBC 0-2 /HPF (0-3) 07/17/19 15:15 Urine WBC 0-2 /HPF (0-5) 07/17/19 15:15 Ur Squamous Epith Cells Few /HPF (NEGATIVE) 07/17/19 15:15 Urine Bacteria Trace /HPF (NEGATIVE) 07/17/19 15:15 Ur Culture Indicated? No/not indicated 07/17/19 15:15 SARS-CoV-2 (PCR) Negative (NEGATIVE) 07/19/19 09:46 Tissue Pathology To follow 07/19/19 14:25 Reason For Visit: ABD PAIN,N/V/D Discharge Diagnosis All Active Problems (Updated 07/18/19 @ 18:20 by RACHEL SIMEON) Intractable abdominal pain (Acute) Gastritis (Acute) Nausea & vomiting (Acute) Gallbladder attack (Acute) Plan of Treatment: Continue with present treatment and follow up plan. Pt is to keep follow up appointment as instructed and take medications as ordered. Discharge Medications Discharge Medications: No Known Drug Allergies Allergy (Verified 07/16/19 18:44) CONTINUE taking the following medications Amitiza 24 mcg PO DAILY 07/17/19 [History] Premarin 0.625 mg PO DAILY 07/17/19 [History] cilostazol 100 mg PO DAILY 07/17/19 [History] clonazepam 0.5 mg PO BID 07/17/19 [History] gabapentin 300 mg PO DAILY 07/17/19 [History] levothyroxine 50 mcg PO DAILY 07/17/19 [History] naproxen 375 mg PO BID 07/17/19 [History] omeprazole 40 mg PO DAILY 07/17/19 [History] oxycodone 20 mg PO QID PRN 07/17/19 [History] trazodone 150 mg PO DAILY 07/17/19 [History]
== END 2019-07-21 11:35 | disposition home or self-care (01) | DRG 445 ==
LOC: MED/SURG
PROVIDERS: ADMIT Internal Medicine; ATTEND Internal Medicine
DX: Z01.810 Encounter for preprocedural cardiovascular examination; K21.9 Gastro-esophageal reflux disease without esophagitis; D72.829 Elevated white blood cell count, unspecified; E87.1 Hypo-osmolality and hyponatremia; R10.9 Unspecified abdominal pain; K81.0 Acute cholecystitis; K59.00 Constipation, unspecified; K29.70 Gastritis, unspecified, without bleeding; K82.8 Other specified diseases of gallbladder; Z11.59 Encounter for screening for other viral diseases; M19.90 Unspecified osteoarthritis, unspecified site
CPT/HCPCS: 36415; 74000; 74018; 74022; 74177; 76705; 78227; 80053; 81001; 82150; 83690; 83735; 84132; 84439; 84443; 85025; 87040; 87635; 93005; A4216; A4222; A9537; G0378; J0330; J0690; J1170; J1650; J1885; J2250; J2270; J2405; J2543; J2704; J2710; J3010; J3475; J3480; J3490; J7030; J7050; J7120